=== PATIENT | female | born 1950 | race Caucasian/White ===

== ENCOUNTER → 2021-05-18 11:58 | Outpatient (BNVA) | payer MEDICARE, SELFPAY | PROVIDERS: Family Provider Family Medicine; PCP Family Medicine; Visit Provider Orthopaedic Surgery | DX: M54.5 Low back pain (principal); G89.29 Other chronic pain; Z98.1 Arthrodesis status | CPT/HCPCS: 72110 ==

== ENCOUNTER 2021-05-30 09:31 | Outpatient (CLI) | payer MEDICARE, SELFPAY ==
--- NOTE | 2021-05-30 09:30 | MR_ITS ---
WS: [id number] MRI LUMBAR SPINE NONCONTRAST HISTORY: M54.5 - Low back pain COMPARISON: 10/08/[address] 12/03/2017. TECHNIQUE: Sagittal and axial multisequence imaging is submitted. Prior anterior cervical fusion from C4 to C6. Moderate degenerative disc disease and spondylitic li ges in the cervical and thoracic spine curvature. Mild bilateral foraminal narrowing at T10-11 throug h T12-L1 without severe stenosis. LEFT curvature lumbar spine with hardware fusion at L4-5. Disc spaces are narrowed and desiccated throughout the lumbar spine, most significant at L3-4 and L4- 5. L4 anterolisthesis by 8 mm and L3 retrolisthesis by 5 mm. Very similar in appearance to the prior examinations. No acute marrow edema or fracture. Conus terminates normally at L1-2 disc level. L1-L2: Mild annular disc bulging and ligamentum flavum hypertrophy. No stenosis or progression. L2-L3: Diffuse annular disc bulging with mild ligamentum flavum hypertrophy and facet arthritis. Mild bilateral foraminal stenosis. L3-L4: Moderate central stenosis due to retrolisthesis, disc bulging and marked ligamentum flavum and facet arthritis. Significant progression of stenosis since the prior MRI. Moderate central and bilat eral subarticular recess and foraminal stenosis. L4-L5: Thecal sac is widely patent due to bilateral large laminectomy defects posteriorly. Mild bilat eral foraminal stenosis similar to the prior study. Mild narrowing of the subarticular recesses. No o bvious change. L5-S1: Mild disc bulging. Slight clumping of the nerve roots in the peripheral thecal sac. Mild bilat eral foraminal stenosis with moderate encroachment upon the L5 nerve roots bilaterally and mild on th e S1 nerve roots. No significant progression. MR/MR lumbar spine wo con* [id number] IMPRESSION: 1. Status post L4-5 posterior lumbar fusion with large laminectomy defects. No acute fracture. 2. Significant progression of central stenosis at L3-4 since the prior examina tions. There is moderate central and bilateral subarticular recess and foramina l stenosis at L3-4 due to multiple factors as described above. 3. Mild bilateral foraminal stenosis at L5-S1 without progression. 4. Mild bilateral foraminal stenosis at L2-3 and L4-5 without progression. 5. L4 anterolisthesis by 8 mm is stable.
== END 2021-05-30 09:32 | disposition home or self-care (01) ==
LOC: RADSHAW 09:33
PROVIDERS: PCP Family Medicine; Visit Provider Orthopaedic Surgery
DX: M54.5 Low back pain (principal); M48.061 Spinal stenosis, lumbar region without neurogenic claudication; M48.07 Spinal stenosis, lumbosacral region; M96.1 Postlaminectomy syndrome, not elsewhere classified
CPT/HCPCS: 72148

== ENCOUNTER 2021-06-09 12:42 | Outpatient (CLI) | payer MEDICARE, SELFPAY ==
--- NOTE | 2021-06-09 13:00 | XR_ITS ---
WS: [id number] Left shoulder, 2 views, 06/09/2021 Clinical Data: continued left shoulder pain Comparison: None. Findings: No fractures or dislocations are seen. The AC joint is normal. The adjacent left clavicle, left scapu la and ribs are normal. The soft tissues are unremarkable. There is cystic change of the lesser tuberosity of the left humeral head and also of the inferior gle noid rim. XR/XR shoulder LT min 2V* [id number] Impression: Osteoarthritis of the left shoulder.
== END 2021-06-09 12:43 | disposition home or self-care (01) ==
PROVIDERS: PCP Family Medicine; Visit Provider Family Medicine
DX: M19.012 Primary osteoarthritis, left shoulder (principal)
CPT/HCPCS: 73030

== ENCOUNTER 2021-06-14 10:31 | Outpatient (RCR) | payer MEDICARE, SELFPAY | END 2021-06-27 23:59 | disposition home or self-care (01) | LOC: SPT 10:31 | PROVIDERS: PCP Family Medicine; Referring Provider Family Medicine; Visit Provider Family Medicine | DX: M75.52 Bursitis of left shoulder (principal) | CPT/HCPCS: 97110; 97161 ==

== ENCOUNTER → 2021-06-29 10:37 | Outpatient (BNVA) | payer MEDICARE, SELFPAY | PROVIDERS: PCP Family Medicine; Visit Provider Anesthesiology Pain Medicine | DX: G89.29 Other chronic pain (principal); M48.062 Spinal stenosis, lumbar region with neurogenic claudication; M47.816 Spondylosis without myelopathy or radiculopathy, lumbar region; M51.36 Other intervertebral disc degeneration, lumbar region; M43.16 Spondylolisthesis, lumbar region; M25.512 Pain in left shoulder; Z79.891 Long term (current) use of opiate analgesic | CPT/HCPCS: 99205 ==

== ENCOUNTER → 2021-07-04 13:58 | Outpatient (BNVA) | payer MEDICARE, SELFPAY | PROVIDERS: PCP Family Medicine; Visit Provider Anesthesiology Pain Medicine | DX: M54.16 Radiculopathy, lumbar region (principal); M48.062 Spinal stenosis, lumbar region with neurogenic claudication; Z79.891 Long term (current) use of opiate analgesic | CPT/HCPCS: 64483; 64484; J1100; J3490 ==

== ENCOUNTER 2021-07-10 15:40 | Outpatient (CLI) | payer MEDICARE, SELFPAY ==
--- NOTE | 2021-07-10 16:00 | MR_ITS ---
WS: [id number] MRI LEFT SHOULDER HISTORY: M75.52 - Bursitis of left shoulder COMPARISON: Radiographs 06/09/2021 TECHNIQUE: Multiplanar sequences of the shoulder joint are submitted. Moderate AC joint osteoarthritic changes. Hypertrophic osteophytes along the joint line of the AC norberto nt along with edema and thickening of the joint capsule. There is mild encroachment upon the supraspi natus tendon and muscle. There are small amount of fluid in the subdeltoid bursa. No os acromion. Bic eps tendon is in the bicipital groove. There is variable signal within the biceps tendon suggesting c hronic tendinopathy with increase fluid along the tendon sheath. Severe narrowing of the glenohumeral joint. Vertical orientation of the glenoid. There is bone upon b one with osteophytic ridging around the humeral head. Loss of cartilage and high riding humeral head. There is increase fluid in the axillary pouch and surrounding the humeral head. Fluid surrounding th e humeral head is of mixed signal intensity. Tiny loose bodies and possible cartilage deposition with in the fluid. There is a mixed fluid collection in the subscapularis recess. Significant tendinopathy and fraying along the surface of the distal supraspinatus tendon and also th e infraspinatus tendon. There are no full-thickness tears. There is a small osteophyte or calcific de nsity or loose body adjacent to the distal subscapularis tendon causing mild deformity. This may be a loose body from the loss of cartilage and subchondral cystic changes surrounding the humeral head. S ubscapularis tendon also appears intact. Full atrophy. MR/MR shoulder LT wo con* [id number] IMPRESSION: 1. Severe osteoarthritis at the glenohumeral joint and moderate at the AC join t. 2. Mixed fluid like signal surrounding the humeral head with marked distention of the subscapularis recess. There are tiny loose bodies within the joint effu virgil and the joint capsule is thickened. Probably due to synovitis. 3. Fraying and degenerative changes involving the rotator cuff tendons but no full-thickness tear. Majority of the changes within the tendons is related to i rregularity along the surfaces. 4. Mild biceps tendinopathy.
== END 2021-07-10 15:41 | disposition home or self-care (01) ==
LOC: RADSHAW 15:46
PROVIDERS: PCP Family Medicine; Visit Provider Orthopaedic Surgery
DX: M75.52 Bursitis of left shoulder (principal); M19.012 Primary osteoarthritis, left shoulder
CPT/HCPCS: 73221

== ENCOUNTER → 2021-07-18 12:59 | Outpatient (BNVA) | payer MEDICARE, SELFPAY | PROVIDERS: PCP Family Medicine; Visit Provider Anesthesiology Pain Medicine | DX: M54.16 Radiculopathy, lumbar region (principal); M48.062 Spinal stenosis, lumbar region with neurogenic claudication; Z79.891 Long term (current) use of opiate analgesic | CPT/HCPCS: 64483; 64484; J1100; J3490 ==

== ENCOUNTER → 2021-08-01 10:25 | Outpatient (BNVA) | payer MEDICARE, SELFPAY | PROVIDERS: PCP Family Medicine; Visit Provider Anesthesiology Pain Medicine | DX: M48.062 Spinal stenosis, lumbar region with neurogenic claudication (principal); M47.816 Spondylosis without myelopathy or radiculopathy, lumbar region; M51.36 Other intervertebral disc degeneration, lumbar region; M43.16 Spondylolisthesis, lumbar region; M79.604 Pain in right leg; M79.605 Pain in left leg; Z79.891 Long term (current) use of opiate analgesic | CPT/HCPCS: 99214 ==

== ENCOUNTER → 2021-10-09 11:32 | Outpatient (BNVA) | payer MEDICARE, SELFPAY | PROVIDERS: PCP Family Medicine; Visit Provider Registered Nurse Neonatal Intensive Care | DX: S69.91XA Unspecified injury of right wrist, hand and finger(s), initial encounter (principal); W19.XXXA Unspecified fall, initial encounter; S52.551A Other extraarticular fracture of lower end of right radius, initial encounter for closed fracture | CPT/HCPCS: 73110 ==

== ENCOUNTER → 2021-10-16 12:08 | Day surgery (SDC) | payer MEDICARE, SELFPAY | PROVIDERS: PCP Family Medicine; Visit Provider Orthopaedic Surgery | DX: Z01.818 Encounter for other preprocedural examination (principal); S69.90XA Unspecified injury of unspecified wrist, hand and finger(s), initial encounter; X58.XXXA Exposure to other specified factors, initial encounter | CPT/HCPCS: 93005 ==

== ENCOUNTER 2021-10-17 09:37 | Outpatient (CLI) | payer MEDICARE, SELFPAY ==
--- NOTE | 2021-10-17 | CTR_ITS ---
PROCEDURE INFORMATION: Exam: CT Left Upper Extremity Without Contrast, Shoulder Exam date and time: 10/17/2021 10:03 AM Age: 71 years old Clinical indication: Pain; Shoulder; Left; Additional info: M19.012 - primary osteoarthritis, left shoulder TECHNIQUE: Imaging protocol: CT of the Left upper extremity without contrast was performed. Exam focused on the shoulder. Axial, coronal and sagittal reformatted images were created and reviewed. Radiation optimization: All CT scans at this facility use at least one of these dose optimization techniques: automated exposure control; mA and/or kV adjustment per patient size (includes targeted exams where dose is matched to clinical indication); or iterative reconstruction. COMPARISON: MR shoulder LT wo con* [id number] 07/10/2021 4:11 PM RADIATION DOSE METRICS: Total DLP (mGy-cm): 1579.1 FINDINGS: Bones/joints: Osteopenia. No CT evidence of acute fracture or dislocation. Severe glenohumeral osteoarthrosis, characterized by joint space narrowing, osteophytosis, subchondral sclerosis and subcortical cystic change. Mild acromioclavicular osteoarthrosis. Age-indeterminate erosions along the superior humeral head, likely chronic. Large, complex effusion. Soft tissues: Mild soft tissue swelling. CT/CT shoulder LT wo con* [id number] IMPRESSION: 1. Severe glenohumeral osteoarthrosis and large, complex effusion. 2. Age-indeterminate erosions along the superior humeral head, likely chronic. Please note if there is clinical concern for infectious or inflammatory arthropathy, joint aspiration may be useful. 3. Additional findings, as above.
== END 2021-10-17 09:38 | disposition home or self-care (01) ==
LOC: RAD 09:39
PROVIDERS: PCP Family Medicine; Visit Provider Orthopaedic Surgery
DX: M19.012 Primary osteoarthritis, left shoulder (principal); M25.412 Effusion, left shoulder; Z20.822 Contact with and (suspected) exposure to COVID-19
CPT/HCPCS: 73200; 87635

== ENCOUNTER 2021-10-23 16:30 | Observation (INO) | payer MEDICARE, SELFPAY ==
--- NOTE | 2021-10-16 12:08 | ECG_ITS ---
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
[2021-10-16 12:15] VITALS: BMI 25.7
--- NOTE | 2021-10-16 12:59 | ANES.PREANE2 ---
Pre-Anesthetic Assessment Pre-Anesthetic Assessment: Height/Weight: Height 1.63 m Weight 68.039 kg Preop Diagnosis: Osteoarthritis Left shoulder Proposed Procedure: Operation Date: 10/23/21 11:35 Proposed Procedures p Total Shoulder Arthroplasty 15509 M19.012(Left) - Edy Mendes MD Familial anesthetic complications: None Social: Social History: No alcohol and No tobacco Exam: Pre-Anes Outpt Exam: alert, oriented x 3, clear to auscultation bilaterally and regular rate & rhythm Airway: MP: 2 Dentition: False Pulmonary: Pulmonary: Sleep apnea CV/HEM: CV/HEM: HTN Anesthetic Plan: ASA status: 2 Anesthesia: General and Regional (specify below) (interscalene) Risk of > 500 ml blood loss (7ml/kg in children): No PFSH Anesthesia PFSH: Medical History Abnormal weight gain Cervical stenosis of spine Chronic back pain Depression Hypertension Hypothalamic hypothyroidism Surgical History History of back surgery Social History Smoking and tobacco status: never smoked Alcohol intake: never Data Anesthesia Cardiac Studies: No Data to Display
[2021-10-23] VITALS (13 sets, daily range): BP systolic 142–175; BP diastolic 70–95; PULSE 69–106; RESP 14–18; TEMP 36.3–36.8; O2SAT 93–100
[2021-10-23] MEDS: oxyCODONE 20 mg ER (12 HR) Tablet PO (10:21)
[2021-10-23] MEDS: gabapentin 300 mg Capsule PO ×2 (10:21→21:06)
[2021-10-23] MEDS: sodium chloride 0.9% 1,000 ML 30 ML IV (10:21)
[2021-10-23] MEDS: acetaminophen 500 mg Tablet 1000 MG PO ×2 (10:21→17:58)
[2021-10-23] MEDS: CELEcoxib 200 mg Capsule 400 MG PO (10:22)
[2021-10-23] MEDS: HYDROmorphone 1 mg/mL INJ 1 mL 0.5 MG IVP (10:45)
--- NOTE | 2021-10-23 11:02 | P.ANESUD_ITS ---
Pre-Anesthetic Update Pre-Anesthetic Assessment: Date of Surgery/Procedure: 10/23/21 Preop Ginna gnosis: Osteoarthritis Left shoulder Proposed Procedure: Operation Date: 10/23/21 11:35 Proposed Procedures p Total Shoulder Arthroplasty 09753 M19.012(Left) - Edy Mendes MD Any changes to Pre-Anesthetic Assessment?: No Last Intake: Intake Last Liquid Date 10/22/21 Last Liquid Time 19:00 Last Solid Date 10/22/21 Last Solid Time 19:00 Vitals: Temperature 97.9 F 10/23/21 10:00 Temperature Source Temporal Artery S can 10/23/21 10:00 Pulse Rate 69 10/23/21 10:00 Pulse Rhythm 10/23/21 10:15 Pulse Strength 3+ Normal 10/23/21 10:15 Respiratory Rate 18 10/23/21 10:45 Respiratory Effort Non-Labored 10/23/21 10:45 Respiratory Depth Normal 10/23/21 10:45 Respiratory Patter n 10/23/21 10:45 Blood Pressure 175/82 10/23/21 10:00 Blood Pressure Maddy n 113 10/23/21 10:00 Pulse Oximetry 100 10/23/21 10:45 Oxygen Delivery Me thod 10/23/21 10:15 Exam: Pre-Anes Outpt Exam: alert, oriented x 3, clear to auscultation bilaterally and regular rate & rhythm Other Pertinent Information: Other Pertinent Information: GA with interscalen blk Cardiac Studies: No Data to Display
--- NOTE | 2021-10-23 11:02 | ANES.PROC ---
Anesthesia Procedures Procedure/Date: 10/23/21 Nerve Block ^: Nerve Block 1: Main Anesthesia: general anesthesia Time Out Performed: Yes Consent: requested by attending/covering physician, from patient, risks and benefits reviewed and patient agrees to proceed Nerve block location: interscalene (left) Anesthesia monitors applied: pulse oximetry, EKG, BP cuff and oxygen Nerve block position: semi sitting Anesthetic Used: ropivicaine 0.5% Amount of anesthesia used (mL): 30 Ultrasound used to: recognize landmarks and visualize and ID brachial plexus Nerve Stimulator Used?: No Interscalene/Femoral BLK: 2 stimuplex 22 g needle used for position and inplane approach and visualize local anesthetic spread Injection: neg aspiration of heme Patient Tolerated Procedure: well Complications: none
--- NOTE | 2021-10-23 12:22 | P.HP_ITS ---
Same Day Surgery H&P Indication for Procedure/HPI DATE OF PROCEDURE: October 23, 2021 CHIEF COMPLAINT/INDICATIONFOR SURGICAL PROCEDURE: Osteoarthritis left shoulder here for total shoulder arthroplasty PREOP DIAGNOSIS: Osteoarthritis Left shoulder PLANNED PROCEDRUE: Operation Date: 10/23/21 11:35 Proposed Procedures p Total Shoulder Arthroplasty 47864 M19.012(Left) - Edy Mendes MD 71-year-old female with aggressive history of a left shoulder pain particularly over the last year. She has failed medical management including hydrocodone and multiple injections. She is here for elective left total shoulder arthroplasty Medications/Allergies* Home Medications Medication Instructions Recorded Confirmed Type milk thistle 150 mg capsule 150 mg PO DAILY cap 12/09/19 10/23/21 History multivitamin 1 tab PO DAILY 12/09/19 10/23/21 History hydrocodone 7.5 mg-ibuprofen 200 1 tab PO Q6H PRN 06/29/21 10/23/21 History mg tablet Allergies/Adverse Reactions Allergy/AdvReac Type Severity Reaction Status Date / Time No Known Allergies Allergy Verified 10/16/21 12:11 Current Medications: Generic Name Dose Route Start Last Admin Trade Name Freq PRN Reason Stop Dose Admin Sodium Chloride 1,000 mls @ 30 mls/hr 10/23/21 10:00 10/23/21 10:21 Sodium Chloride 0.9% IV 10/24/21 09:59 30 mls/hr .Q24H MONET Administration Pertinent History/Comorbid Conditions* Medical History (Updated 10/11/21 @ 11:15 by Edy Mendes MD) Abnormal weight gain Cervical stenosis of spine Chronic back pain Depression Hypertension Hypothalamic hypothyroidism Surgical History (Updated 12/09/19 @ 12:46 by Zaida Siddiqui MD) History of back surgery Social History Smoking and tobacco status: never smoked Alcohol intake: never Pertinent Exam Findings alert, oriented x 3, clear to auscultation bilaterally, regular rate & rhythm and operative site marked Recommendations Surgery/Procedure today Coding Level of Care Code Acute Surgical Clinical Reviewer for Pari Ann
[2021-10-23] MEDS: EPINEPHrine 1 mg/mL INJ XX (13:38)
--- NOTE | 2021-10-23 15:12 | PM.OP ---
Operative Report Date of procedure: October 23, 2021 Pre-op Diagnosis: Osteoarthritis Left shoulder Post-op diagnosis: same Post-op Findings: Same Procedure Done: Left total shoulder arthroplasty Implants: Tornier Cortiloc glenoid size 35, nucleus size 3, Simplicity head 45 x 17 [place] 4-hole hand plate Pathology: none sent Surgeon: Edy Mendes Anesthesia: General and Nerve Block (Interscalene block) Estimated blood loss (mL): 200 Complications: None Findings: The patient had severe degenerative central erosive change of the humeral head and peripheral osteophytes and peripheral glenoid osteophytes Condition: stable Disposition: PACU Procedure: An intrascalene blocks provided the holding area. The patient was taken to the operating room and given a general anesthesia. They were given 2 g of Ancef. Positioned in beachchair position with the arm in arm pagan. A timeout was performed. A 8 cm long incision was made over the deltopectoral groove and dissection carried out with a scalpel blade to the deltopectoral interval. The cephalic vein was identified and retracted laterally. Digital dissection was accomplished to free lesions beneath the deltoid and beneath the coracobrachialis musculature. A small/medium Juan F sleeve was placed beneath the deltoid and pectoralis major tendon. The biceps tendon was identified and dissection traced proximally to the bicipital groove. Utilizing cautery the subscapularis and anterior capsule was released anteriorly in full-thickness and freed distally at the level of the anterior humeral circumflex vessels. The glenohumeral joint include was externally rotated and dislocated. In accordance with our preoperative plan a neck cut in 30 degrees of retroversion. Capsule was released from the inferior and posterior glenoid. A canal finder was used to find the canal and sequential broaching was accomplished until rotational stability was encountered with a stem of size 3, a calcar protector plate was applied. The humeral head was then retracted posteriorly and inferiorly. Utilizing electrocautery labral and biceps remnants were excised circumferentially. The centering guide was used to place the central guidepin and the glenoid ream down to sclerotic bone. The 35 mm glenoid provided satisfactory coverage. the baseplate was prepared with the central and 3 peripheral holes. The drill holes were soaked in epinephrine solution. Peripheral peg holes were filled with cement and the final 35 mmCortiloc glenoid glenoid component was placed. A trial reduction was performed with the 45 mm diameter, 17 mm thickness head and the final components were press-fit into place. The shoulder was reduced and found to be stable. The subscap was secured with a 2 locking Ultratape sutures exiting in the dorsal aspect of the tendon. The lesser tuberosity was debrided down to trabecular bone. The shoulder was irrigated with saline and gentamicin solution. 3 drill holes were made in the bicipital tuberosityfrom proximal to distal. The most superior suture was passed through the top hole, middle sutures through the second hole, and the inferior suture through the inferior hole. The sutures were then passed through a small 4-hole [place] plate and secured with the elbow in 30 degrees of external rotation, rowing the rotator cuff over the lesser tuberosity. The lateral rotator interval was closed with ultra tape suture. The deltopectoral interval was closed with 0 Vicryl. The subcutaneous tissues were closed with 2-0 Vicryl. The skin was closed with skin too. Sterile dressings were applied. The patient was placed in a sling extubated and taken to recovery room in stable condition.
--- NOTE | 2021-10-23 15:26 | XR_ITS ---
WS: [id number] Left shoulder, AP view, 10/23/2021 Clinical Data: Left total shoulder Comparison: Left shoulder, 06/09/2021 Findings: There is a left shoulder prosthesis are in place in the left humeral head. The glenoid rim does show cystic change. XR/XR shoulder LT min 2V* [id number] Impression: Total left shoulder prosthesis.
--- NOTE | 2021-10-23 16:01 | SUR.PHASEI ---
15:30 RECEIVED PATIENT FROM OR STAFF. PATIENT DROWSY BUT RESPONDS TO VERBAL. AIRWAY PATENT. SINUS TACH ON MONITOR. PATIENT DENIES PAIN OR NAUSEA. 16:00 REPORT GIVEN TO SECOND FLOOR NURSE. .PATIENT ALERT AND ORIENTED. TOLERATING ICE CHIPS.DENIES DYSPNEA OR PAIN. X RAY DONE.
--- NOTE | 2021-10-23 17:05 | ANE.PACU2 ---
Inpatient post-anesthesia follow up: Airway intact: Yes Vital signs: Temperature 97.7 F Pulse Rate 91 Respiratory Rate 18 Blood Pressure 154/92 Pulse Oximetry 97 Oxygen Delivery Me thod Nasal Cannula Oxygen Flow Rate 3 Fraction of Inspir ed Oxygen Hydration adequate: Yes Nausea and vomiting: No Pain level: 1 Mental status: Baseline
[2021-10-23] MEDS: cloNIDine 0.1 mg Tablet PO (21:05)
[2021-10-23] MEDS: cyclobenzaprine 10 mg Tablet 5 MG PO (21:06)
[2021-10-23] MEDS: CELEcoxib 200 mg Capsule PO (21:10)
[2021-10-24] VITALS (7 sets, daily range): BP systolic 113–164; BP diastolic 61–84; PULSE 66–74; RESP 16–18; TEMP 36.7–36.8; O2SAT 91–94
[2021-10-24] MEDS: acetaminophen 500 mg Tablet 1000 MG PO ×2 (03:03→10:17)
[2021-10-24 05:33] LABS: Hemoglobin 10.3 g/dL (11.5-15.3)
[2021-10-24] MEDS: levothyroxine 50 mcg Tablet PO (08:02)
[2021-10-24] MEDS: gabapentin 300 mg Capsule PO (08:02)
[2021-10-24] MEDS: venlafaxine ER (24HR) 150 mg Capsule PO (08:02)
[2021-10-24] MEDS: cloNIDine 0.1 mg Tablet PO (08:02)
[2021-10-24] MEDS: aspirin 325 mg EC Tablet PO (08:03)
[2021-10-24] MEDS: oxyCODONE 5 mg IR Tab/Cap 10 MG PO ×2 (08:03→12:25)
[2021-10-24] MEDS: CELEcoxib 200 mg Capsule PO (10:17)
--- NOTE | 2021-10-24 11:59 | P.DS_ITS ---
Discharge Providers Date of Admission: 10/23/21 16:30 Date of Discharge: October 24, 2021 Attending Provider at Admission: Edy Mendes MD Attending Provider at Discharge: Edy Mendes MD Primary Care Provider: Zaida Siddiqui MD Reason for Visit Reason for Visit: Primary osteoarthritis left shoulder Hospital Course Hospital Course The patient tolerated surgery well. They remained hemodynamically stable. They was begun on aspirin and sequential compression dressings for DVT prophylaxis. The patient was mobilized and begin occupational therapy beginning the day of surgery. As the pain was adequately controlled and they were fully mobile they were discharged home. Physical Exam Narrative: EXAM NARRATIVE: The patient's left shoulder incision was clean and dry on the day of discharge. She would fire her deltoid and biceps. No distal neurovascular deficits were noted Discharge Data Data Completed and Pending: Completed Studies During Hospitalization Category Date Time Status XR shoulder LT mi n 2V* [id number] Routin e Exams 10/23/21 15:26 Completed Labs from last 24 hours 10/24/21 04:55 Hgb 10.3 L Vitals: Last Vital Signs Temp 98.3 F 10/24/21 11:37 Pulse 74 10/24/21 11:37 Resp 16 10/24/21 11:37 BP 113/61 10/24/21 11:37 Pulse Ox 91 10/24/21 11:37 Discharge Plan Discharge Patient Disposition: Home Condition: Stable Prescriptions: New celecoxib 200 mg Capsule 200 mg PO Q12H 14 Days Qty: 28 RF: 0 Continued hydrocodone-ibuprofen 7.5-200 mg tablet 1 tab PO Q6H PRN (Reason: Pain) RF: 0 cyclobenzaprine 5 mg tablet 5 mg PO TID PRN (Reason: muscle spasm) Qty: 60 RF: 3 multivitamin Tablet 1 tab PO DAILY RF: 0 milk thistle 150 mg capsule 150 mg PO DAILY RF: 0 levothyroxine [Synthroid] 50 mcg tablet 50 mcg PO DAILY Qty: 90 RF: 3 venlafaxine 150 mg capsule,extended release 24hr 150 mg PO DAILY 90 Days Qty: 90 RF: 3 clonidine HCl 0.1 mg tablet 0.1 mg PO BID 90 Days Qty: 180 RF: 3 gabapentin 300 mg capsule 300 mg PO TID Qty: 270 RF: 1 Discharge Orders: Discharge Order (Routine); Ordered 10/24/21 Ordered By: Edy Mendes Other Ambulatory Orders: Physical Therapy Eval and Treat Outpatient (Order) Timeframe: 2 Weeks Facility: [facility] - Location: Physical Therapy Ordered By: Edy Mendes Referrals: Edy Mendes MD [Physician] - 10/26/21 9:00 am Discharge Diet: Advance as tolerated Discharge Activity: Limit activity as instructed Patient Instructions: Oxycodone/Acetaminophen (By mouth), Celecoxib (By mouth), Shoulder Arthroplasty (GEN), Opioid Safety Activity Restrictions/Additional Instructions: Okay to shower Apply Ice up to 20 min/hr for pain and swelling Take Celebrex twice a day for the next 15 days for pain , discontinue other anti-inflammatories Pain management will be performed under the supervision of [facility] pain management in [place]. Prescriptions have been supplied by them. Exercises per occupational therapy. Pendulum exercises left shoulder, active range of motion left elbow wrist and hand Leave arm in immobilizer except when doing exercises Discharge Attestations Time Spent in Discharge Care*: other Quality Metrics Clinical Quality Measures During this hospital stay, did patient experience: None Coding Level of Care Code Acute [facility] SANTIAGO note
== END 2021-10-24 13:57 | disposition home or self-care (01) ==
LOC: MEDSURG 10-24 11:59
PROVIDERS: Admitting Provider Orthopaedic Surgery; PCP Family Medicine; Visit Provider Orthopaedic Surgery
PROC: (CPT 23472; principal; 2021-10-23 11:35)
DX: M19.012 Primary osteoarthritis, left shoulder (principal); F32.9 Major depressive disorder, single episode, unspecified; I10 Essential (primary) hypertension; G47.30 Sleep apnea, unspecified
CPT/HCPCS: 23472; 36415; 64415; 73030; 76942; 85018; 97165; C1713; C1776; G0378; J0171; J0690; J1100; J1170; J1200; J1580; J2405; J2795; J3010; J3490; J7030

== ENCOUNTER 2021-11-15 06:00 | Outpatient (RCR) | payer MEDICARE, SELFPAY | END 2021-11-27 23:59 | disposition home or self-care (01) | LOC: SPT 06:00 | PROVIDERS: PCP Family Medicine; Referring Provider Orthopaedic Surgery; Visit Provider Orthopaedic Surgery | DX: M19.012 Primary osteoarthritis, left shoulder (principal) | CPT/HCPCS: 97110; 97161 ==

== ENCOUNTER 2021-11-28 06:00 | Outpatient (RCR) | payer MEDICARE, SELFPAY | END 2021-12-25 23:59 | disposition home or self-care (01) | LOC: SPT 06:00 | PROVIDERS: PCP Family Medicine; Referring Provider Orthopaedic Surgery; Visit Provider Orthopaedic Surgery | DX: M19.012 Primary osteoarthritis, left shoulder (principal) | CPT/HCPCS: 97110 ==

== ENCOUNTER → 2021-12-13 10:12 | Outpatient (BNVA) | payer MEDICARE, SELFPAY | PROVIDERS: PCP Family Medicine; Visit Provider Orthopaedic Surgery | DX: Z96.612 Presence of left artificial shoulder joint (principal) | CPT/HCPCS: 73030 ==

== ENCOUNTER 2022-08-24 11:09 | Outpatient (CLI) | payer MEDICARE, SELFPAY ==
--- NOTE | 2022-08-24 11:19 | MM_ITS ---
WS: [id number] BILATERAL SCREENING DIGITAL TOMOSYNTHESIS MAMMOGRAM WITH CAD HISTORY: Screening exam. COMPARISON: 03/25/2019, 03/13/2019, 06/25/2014 Bilateral CC and MLO views with tomosynthesis and synthetic mammography submitted. Computer aided det ection analyzed. Breast composition: There are scattered areas of fibroglandular density. No suspicious masses, microc alcifications or architectural distortion. Benign calcification anterior LEFT breast. MM/[place] [id number] IMPRESSION: BI-RADS: 2-Benign FOLLOW UP: 1 Year Follow-up
== END 2022-08-24 11:10 | disposition home or self-care (01) ==
PROVIDERS: PCP Family Medicine; Visit Provider Family Medicine
DX: Z12.31 Encounter for screening mammogram for malignant neoplasm of breast (principal)
CPT/HCPCS: 77063; 77067

== ENCOUNTER 2023-01-14 12:13 | Outpatient (CLI) | payer MEDICARE, SELFPAY ==
--- NOTE | 2023-01-14 12:37 | XR_ITS ---
WS: [id number] EXAMINATION: XR knee RT 3V* [id number] REASON FOR EXAM: increasing lateral knee/patellar pain COMPARISON: None available. ORDER DATE: 01/14/2023 12:45 PM FINDINGS: There are marginal osteophytes associated with the tibial spines, patella and other articular margins with lateral and patellofemoral compartment narrowing. There is no sign of any acute fracture or dis location. A small joint effusion cannot be excluded in the popliteal space or this could be a poplite al cyst corresponding with the circumscribed increased density. XR/XR knee RT 3V* [id number] IMPRESSION: LATERAL AND PATELLOFEMORAL COMPARTMENT NARROWING WITH OSTEOARTHRITIC CHANGES. POSSIBLE POPLITEAL CYST OR POPLITEAL FOSSA JOINT EFFUSION
== END 2023-01-14 12:14 | disposition home or self-care (01) ==
LOC: RAD 12:22
PROVIDERS: PCP Family Medicine; Visit Provider Family Medicine
DX: M94.20 Chondromalacia, unspecified site (principal); M17.11 Unilateral primary osteoarthritis, right knee
CPT/HCPCS: 73562

== ENCOUNTER 2023-01-14 20:00 | Outpatient (CLI) | payer MEDICARE, SELFPAY | END 2023-01-14 20:01 | disposition home or self-care (01) | LOC: SLEEP 01-15 05:18 | PROVIDERS: PCP Family Medicine; Visit Provider Family Medicine | DX: G47.33 Obstructive sleep apnea (adult) (pediatric) (principal) | CPT/HCPCS: 95810 ==

== ENCOUNTER 2023-03-19 20:00 | Outpatient (CLI) | payer MEDICARE, SELFPAY | END 2023-03-20 06:05 | disposition home or self-care (01) | LOC: SLEEP 03-26 15:36 | PROVIDERS: PCP Family Medicine; Visit Provider Family Medicine | DX: G47.33 Obstructive sleep apnea (adult) (pediatric) (principal) | CPT/HCPCS: 95811 ==

== ENCOUNTER → 2023-05-13 12:18 | Outpatient (BNVA) | payer MEDICARE, SELFPAY | PROVIDERS: PCP Family Medicine; Visit Provider Family Medicine | DX: I10 Essential (primary) hypertension (principal); E03.9 Hypothyroidism, unspecified; K57.90 Diverticulosis of intestine, part unspecified, without perforation or abscess without bleeding; Z12.11 Encounter for screening for malignant neoplasm of colon; K52.9 Noninfective gastroenteritis and colitis, unspecified | CPT/HCPCS: 80053; 84443; 85025 ==

== ENCOUNTER → 2024-05-26 09:37 | Outpatient (BNVA) | payer MEDICARE, SELFPAY | PROVIDERS: PCP Family Medicine; Visit Provider Family Medicine | DX: I10 Essential (primary) hypertension (principal); E03.9 Hypothyroidism, unspecified | CPT/HCPCS: 80053; 84443; 85025 ==

== ENCOUNTER 2024-06-09 10:30 | Outpatient (CLI) | payer MEDICARE, SELFPAY ==
--- NOTE | 2024-06-09 | FL_ITS ---
NOTE: Report was unsigned for reason: Report did not cross, copied/pasted. Original Signature date and time was: 06/09/24 @ 1134 EXAMINATION: FL barium swallow modifd [id number] ORDER DATE: 06/09/2024 11:10 AM REASON FOR EXAM: Food gets stuck COMPARISON: None available. FLUOROSCOPY TIME: 1min [id number] # OF SPOT FILMS: 1 8 video fluoroscopy runs FINDINGS: The patient has good oral motor control. The swallowing mechanism is intact. There is no penetration or aspiration of any of the ingested consistencies. There was consistent narrowing of the upper esophagus in the region of the cricopharyngeal muscle. The patient barium tablet held up at this level and reproduce the patient's symptoms IMPRESSION: There is good oral motor control. The swallowing mechanism is intact. There is narrowing at the level of the cricopharyngeal muscle. MTDD
== END 2024-06-09 10:31 | disposition home or self-care (01) ==
LOC: RAD 10:30
PROVIDERS: PCP Family Medicine; Visit Provider Family Medicine
DX: K22.0 Achalasia of cardia (principal); K21.9 Gastro-esophageal reflux disease without esophagitis
CPT/HCPCS: 74230; 92611

== ENCOUNTER → 2024-07-14 13:01 | Outpatient (BNVA) | payer MEDICARE, SELFPAY | PROVIDERS: PCP Family Medicine; Referring Provider Family Medicine; Visit Provider Surgery | DX: R13.10 Dysphagia, unspecified | CPT/HCPCS: 99204 ==

== ENCOUNTER 2024-07-21 11:00 | Day surgery (SDC) | payer MEDICARE, SELFPAY ==
[2024-07-21 10:50] VITALS: BP 145/90; PULSE 63; RESP 18; TEMP 36.4; O2SAT 94
[2024-07-21 11:12] VITALS: BP 191/104; PULSE 75; RESP 16; TEMP 36.1; O2SAT 98
[2024-07-21] MEDS: sodium chloride 0.9% 1,000 ML 30 ML IV (11:15)
--- NOTE | 2024-07-21 11:21 | P.ANESASSM_ITS ---
Pre-Anesthetic Assessment Height/Weight: Height 1.63 m Temp Pulse Resp BP Pulse Ox O2 Del Method 97 F L 75 16 191/104 98 Room Air 07/21/24 11:12 07/21/24 11:12 07/21/24 11:12 07/21/24 11:12 07/21/24 11:12 07/21/24 11:12 Operation Date: 07/21/24 12:10 Proposed Procedures p EGD Dilation W/ Balloon 84295, K21.0(Not Applicable) - Jamie Lantigua MD Familial anesthetic complications: None Was Beta Marco taken within 24 hours: N/A Was Clonidine taken within 24 hours: N/A Last intake: Intake Last Liquid Date 07/20/24 Last Liquid Time 22:30 Last Solid Date 07/20/24 Last Solid Time 21:00 Social No alcohol and No tobacco Exam alert, oriented x 3, clear to auscultation bilaterally and regular rate & rhythm Airway Mallampati: Class II Dentition: false Pulmonary Sleep Apnea CV/HEM Hypertension GI Gastroesophageal Reflux Disease Metabolic Thyroid Disease Anesthetic Plan ASA status: 3 Anesthesia: MAC Risk of > 500 ml blood loss (7ml/kg in children): No Medications/Allergies Home Medications Medication Instructions Recorded Confirmed Last Taken Type hydrocodone 7.5 mg-ibuprofen 200 1 tab PO Q6H PRN Pain 06/29/21 07/21/24 07/20/24 History mg tablet CPAP (Auto-Titrating CPAP) #1 ea 04/02/23 07/21/24 07/20/24 Rx levothyroxine 50 mcg tablet 50 mcg PO DAILY #90 tabs 01/21/24 07/21/24 07/20/24 Rx (Synthroid) venlafaxine 150 mg 150 mg PO DAILY 90 days #90 caps 02/11/24 07/21/24 07/20/24 Rx capsule,extended release 24 hr omeprazole 20 mg capsule,delayed 20 mg PO DAILY #30 caps 05/25/24 07/21/24 07/20/24 Rx release clonidine HCl 0.2 mg tablet 0.2 mg PO BID 07/16/24 07/21/24 07/20/24 History gabapentin 300 mg capsule 300 mg PO TID 07/16/24 07/21/24 07/20/24 History Allergies Allergy/AdvReac Type Severity Reaction Status Date / Time No Known Allergies Allergy Verified 07/17/24 09:05 [facility] Anesthesia Medical History (Updated 07/14/24 @ 16:14 by Jamie Lnatigua MD) GERD (gastroesophageal reflux disease) Hypothyroid Chondromalacia Obstructive sleep apnea Abnormal weight gain Chronic back pain Depression Hypothalamic hypothyroidism Cervical stenosis of spine Hypertension Surgical History (Updated 07/14/24 @ 13:22 by Brandie Kate) History of back surgery Social History (Updated 07/14/24 @ 13:22 by Brandie Kate) Smoking and tobacco/nicotine status: never used tobacco/nicotine Alcohol intake: current Alcohol intake frequency: holidays/special occasions only Substance/Drug Use: never Data Anesthesia Cardiac Studies: No Data to Display
--- NOTE | 2024-07-21 11:22 | P.HPUD_ITS ---
Surgery/Procedure H&P Update DATE OF PROCEDURE: July 21, 2024 DATE H&P PERFORMED: 07/14/24 H&P UPDATE INFORMATION: I have reviewed H&P completed within last 30 days, I have examined patient prior to procedure, No changes to prior documentation and H&P is in [facility] on date indicated PLANNED PROCEDURE: Operation Date: 07/21/24 12:10 Proposed Procedures p EGD Dilation W/ Balloon [id number], K21.0(Not Applicable) - Jamie Lantigua MD
[2024-07-21 11:50] VITALS: BP 145/70; PULSE 63; RESP 18; TEMP 36.4; O2SAT 98
[2024-07-21 12:00] VITALS: BP 143/80; PULSE 66; RESP 18; O2SAT 94
[2024-07-21 12:25] VITALS: BP 164/103; PULSE 68; RESP 18; O2SAT 93
--- NOTE | 2024-07-21 12:30 | ANE.PACU2 ---
Inpatient post-anesthesia follow up: Airway intact: Yes Vital signs: Temperature 97.6 F Pulse Rate 68 Respiratory Rate 18 Blood Pressure 164/103 Pulse Oximetry 93 Oxygen Delivery Me thod Room Air Oxygen Flow Rate Fraction of Inspir ed Oxygen Hydration adequate: Yes Nausea and vomiting: No Pain level: 1 Mental status: Baseline
== END 2024-07-21 12:30 | disposition home or self-care (01) ==
PROVIDERS: PCP Family Medicine; Visit Provider Surgery
DX: K21.00 Gastro-esophageal reflux disease with esophagitis, without bleeding (principal); G47.30 Sleep apnea, unspecified; I10 Essential (primary) hypertension; E03.9 Hypothyroidism, unspecified
CPT/HCPCS: 43239; 88305; J2704; J3490; J7030

== ENCOUNTER → 2024-08-05 11:04 | Outpatient (BNVA) | payer MEDICARE, SELFPAY | PROVIDERS: PCP Family Medicine; Visit Provider Surgery | DX: Z09 Encounter for follow-up examination after completed treatment for conditions other than malignant neoplasm (principal) | CPT/HCPCS: 99213 ==

== ENCOUNTER 2025-04-10 18:33 | Emergency (ER) | payer MEDICARE, SELFPAY ==
[2025-04-10 18:45] VITALS: BP 147/79; PULSE 57; RESP 16; TEMP 36.6; O2SAT 98; BMI 26.6
--- NOTE | 2025-04-10 19:06 | ECG_ITS ---
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 Measurements Intervals [place] Rate: 58 P: 43 [place]: 202 QRS: 62 QRSD: 90 T: 48 QT: 436 QTc: 430 Interpretive Statements SINUS BRADYCARDIA WITH FREQUENT VENTRICULAR PREMATURE COMPLEXES ABNORMAL RHYTHM ECG Compared to ECG 10/16/2021 12:37:08 Ventricular premature complex(es) now present Electronically Signed On 04-11-2025 21:38:01 CDT by Alyce Medeiros M.D. [email or web address] [id number]
[2025-04-10 19:22] LABS: Basophils # 0.1 10^3/uL (0.0-0.1); Basophils % 0.7 %; Eosinophils # 0.3 10^3/uL (0.0-0.8); Eosinophils % 2.5 %; Hematocrit 40.8 % (36-47); Lymphocytes # 7.6 10^3/uL (0.8-4.8); Lymphocytes % 62.5 %; Mean Corpuscular HGB Conc 31.6 g/dL (30-55); Mean Corpuscular Hemoglobin 31.9 pg (27-33); Monocytes # 0.6 10^3/uL (0.2-0.9); Monocytes % 5.2 %; Neutrophils # 3.55 10^3/uL (1.8-7.7); Nucleated Red Blood Cells % 0 %; Platelet Count 235 10^3/cmm (157-399); Red Blood Count 4.04 10^6/uL (3.85-5.65); Red Cell Distribution Width 13.9 % (12.1-15.1)
[2025-04-10 19:38] LABS: Lactic Sepsis W/Reflex 1.1 mmol/L (0.5-2.2)
[2025-04-10 19:40] LABS: Troponin(5th) Baseline 7 ng/L (0-10)
[2025-04-10 19:44] LABS: Bilirubin Urine Negative (Negative); Blood Urine Negative (Negative); Glucose Urine UA Negative (Normal); Ketones Urine Negative (Negative); Leukocyte Esterase Urine Negative (Negative); Nitrate Urine Negative (Negative); Protein Urine Negative (Negative); Specific Gravity, Urine 1.028 (1.005-1.030); Urine Appearance Clear (CLEAR); Urine Color Yellow (Yellow); Urobilinogen Urine 0.2 mg/dL (Negative)
[2025-04-10 19:46] LABS: Alanine Aminotransferase 25 U/L (0-33); Albumin Level 4.6 g/dL (3.5-5.2); Alkaline Phosphatase 58 U/L (35-105); Anion Gap 19.5 (5-19); Aspartate Amino Transferase 22 U/L (0-32); Blood Urea Nitrogen 26 mg/dL (8-23); Calcium 9.8 mg/dL (8.5-10.5); Carbon Dioxide 24 mmol/L (22-29); Chloride 100 mmol/L (98-107); Creatinine Clr Calc Pharmacy 59.3557; Globulin 2.4 g/dL (1.3-4.6); Glucose 106 mg/dL (65-115); Lipase 36 U/L (13-60); Magnesium 2.7 mg/dL (1.7-2.3); Osmolality Calculated 293 mOsm/kg (285-295); Potassium 4.5 mmol/L (3.5-5.1); Sodium 139 mmol/L (136-145); Total Bilirubin 0.3 mg/dL (0.15-1.2)
--- NOTE | 2025-04-10 19:47 | W.ED.GENADLT ---
HPI - General Adult General: Chief complaint: General Medical Stated complaint: Low Pulse high BP N/V Time Seen by Provider: 04/10/25 18:59 History of Present Illness: 74-year-old female who is felt unwell for 3 to 4 days or so. She has had a mild headache. She has had nausea. She states that today her blood pressure was high. She had not checked her blood pressure prior. She says her pulse rate was low as well, in the 50s. She took a clonidine at home and her blood pressure is improved. Her headache and nausea are also improved as well. She denies any chest or abdominal pain. No vomiting. No diarrhea. No fever. No shortness of breath. Related Data Home Medications ?Medication ?Instructions ?Recorded ?Confirmed hydrocodone 7.5 mg-ibuprofen 200 1 tab PO Q6H PRN Pain 06/29/21 08/05/24 mg tablet Previous Rx's ?Medication ?Instructions ?Recorded CPAP (Auto-Titrating CPAP) #1 ea 04/02/23 clonidine HCl 0.2 mg tablet See Rx Instructions .Route 07/28/24 .COMPLEX #180 tabs pantoprazole 40 mg tablet,delayed 40 mg PO ONCE 30 days #30 tabs 08/05/24 release gabapentin 300 mg capsule See Rx Instructions .Route 10/20/24 .COMPLEX #270 caps venlafaxine 150 mg 150 mg PO DAILY 90 days #90 caps 11/23/24 capsule,extended release 24 hr levothyroxine 50 mcg tablet See Rx Instructions .Route 03/29/25 .COMPLEX #90 tabs amlodipine 10 mg tablet 10 mg PO DAILY #30 tabs 04/10/25 Allergies Allergy/AdvReac Type Severity Reaction Status Date / Time No Known Allergies Allergy Verified 08/05/24 11:11 [facility] PFS: Medical History GERD (gastroesophageal reflux disease) Hypothyroid Chondromalacia Obstructive sleep apnea Abnormal weight gain Chronic back pain Depression Hypothalamic hypothyroidism Cervical stenosis of spine Hypertension Surgical History History of back surgery Social History Smoking and tobacco/nicotine status: never used tobacco/nicotine Alcohol intake: current Alcohol intake frequency: holidays/special occasions only Substance/Drug Use: never Physical Exam Const: COMMON NORMALS: no acute distress GENERAL APPEARANCE: cooperative; not ill appearing and not frail appearing HENMT: COMMON NORMALS: normocephalic, atraumatic and Normal external nose present HEAD & SCALP: normocephalic and atraumatic FACE & SINUS: normal facial exam and face symmetric NOSE: Normal external nose present Eye: COMMON NORMALS: Equal, round and reactive pupils present and EOMs intact bilaterally PUPIL: Yes Equal, round and reactive pupils present Neck/C-Spine: GENERAL: Yes trachea midline Chest: CHEST: Yes Symmetrical chest wall rise Resp: COMMON NORMALS: normal respiratory effort, No retractions, No use of accessory muscles and clear to auscultation bilaterally AUSCULTATION: clear to auscultation bilaterally Cardio: COMMON NORMALS: regular rate and regular rhythm RATE: regular rate RHYTHM: regular rhythm GI: COMMON NORMALS: Normal to inspection, nondistended, normoactive bowel sounds present Extremity: COMMON NORMALS: no pedal edema Neuro: SOPHIE COMA SCALE: document GCS findings [place] coma scale eye opening: Spontaneous [place] coma scale verbal response: Orientated [place] coma scale motor response: Obey commands [place] coma scale total score: 15 SENSORY EXAM: Yes extremities (intact) Psych: COMMON NORMALS: speech normal SPEECH: Yes normal speech Skin: COMMON NORMALS: no rashes or lesions noted GENERAL SKIN EXAM: no rashes or lesions noted Course Vital Signs: Vital signs: Vital Signs Temperature 97.9 F 04/10/25 18:45 Pulse Rate 62 04/10/25 22:53 Respiratory Rate 16 04/10/25 22:53 Blood Pressure 163/78 04/10/25 22:53 Pulse Oximetry 95 04/10/25 22:53 Oxygen Delivery Me thod Room Air 04/10/25 21:11 [facility] - General Adult Medical Decision Making Benign exam. Her white blood cell count is 12, with no left shift. Her lactic acid is 1.1. Her urinalysis is negative. Her CRP is 3. Her troponin is 7. She does have a sinus bradycardia with frequent PVCs present on EKG. 2-hour troponin is stable. PVCs are much less frequent now. She is asymptomatic now. Blood pressure remained stable. She was given amlodipine. She will take her blood pressure twice daily. If greater than 150 systolic, she will take amlodipine in favor of clonidine. She can still use clonidine to abort significantly high blood pressure. Close outpatient follow-up. She will be allowed discharge. If heart rate continues to be low, she may need Holter monitoring as an outpatient. Lab Data 04/10/25 19:16 04/10/25 19:16 Radiology Impressions Chest X-Ray 04/10/25 21:42 IMPRESSION: No acute findings. Laboratory Results WBC 12.20 10^3/uL (3.29-11.43) H 04/10/25 19:16 RBC 4.04 10^6/uL (3.85-5.65) 04/10/25 19:16 Hgb 12.90 g/dL (11.27-16.99) 04/10/25 19:16 Hct 40.8 % (36-47) 04/10/25 19:16 MCV 101.0 fl (85-98) H 04/10/25 19:16 MCH 31.9 pg (27-33) 04/10/25 19:16 MCHC 31.6 g/dL (30-55) 04/10/25 19:16 RDW 13.9 % (12.1-15.1) 04/10/25 19:16 Plt Count 235 10^3/cmm (157-399) 04/10/25 19:16 MPV 10.0 fL (7.4-10.4) 04/10/25 19:16 Neut % (Auto) 29.0 % 04/10/25 19:16 Lymph % (Auto) 62.5 % 04/10/25 19:16 [place] % (Auto) 5.2 % 04/10/25 19:16 Eos % (Auto) 2.5 % 04/10/25 19:16 Baso % (Auto) 0.7 % 04/10/25 19:16 Neut # (Auto) 3.55 10^3/uL (1.8-7.7) 04/10/25 19:16 Lymph # (Auto) 7.6 10^3/uL (0.8-4.8) H 04/10/25 19:16 [place] # (Auto) 0.6 10^3/uL (0.2-0.9) 04/10/25 19:16 Eos # (Auto) 0.3 10^3/uL (0.0-0.8) 04/10/25 19:16 Baso # (Auto) 0.1 10^3/uL (0.0-0.1) 04/10/25 19:16 Nucleated RBC % (auto) 0 % 04/10/25 19:16 Nucleated RBCs # 0.0 /100WBC 04/10/25 19:16 Sodium 139 mmol/L (136-145) 04/10/25 19:16 Potassium 4.5 mmol/L (3.5-5.1) 04/10/25 19:16 Chloride 100 mmol/L (98-107) 04/10/25 19:16 Carbon Dioxide 24 mmol/L (22-29) 04/10/25 19:16 Anion Gap 19.5 (5-19) H 04/10/25 19:16 BUN 26 mg/dL (8-23) H 04/10/25 19:16 Creatinine 0.6 mg/dL (0.5-0.9) 04/10/25 19:16 GFR Calculation Not Reportable 04/10/25 19:16 Glucose 106 mg/dL (65-115) 04/10/25 19:16 Calculated Osmolality 293 mOsm/kg (285-295) 04/10/25 19:16 Lactic Acid 1.1 mmol/L (0.5-2.2) 04/10/25 19:16 Calcium 9.8 mg/dL (8.5-10.5) 04/10/25 19:16 Magnesium 2.7 mg/dL (1.7-2.3) H 04/10/25 19:16 Total Bilirubin 0.3 mg/dL (0.15-1.2) 04/10/25 19:16 AST 22 U/L (0-32) 04/10/25 19:16 ALT 25 U/L (0-33) 04/10/25 19:16 Alkaline Phosphatase 58 U/L (35-105) 04/10/25 19:16 Troponin T Baseline 7 ng/L (0-10) 04/10/25 19:16 Troponin T 120 Minute 6.89 ng/L (0-10) 04/10/25 21:09 Delta Troponin T -0.11 ABS# (0-10) L 04/10/25 21:09 C-Reactive Protein 3.0 mg/L (0.0-4.9) 04/10/25 19:16 Total Protein 7.0 g/dL (6.6-8.7) 04/10/25 19:16 Albumin 4.6 g/dL (3.5-5.2) 04/10/25 19:16 Globulin 2.4 g/dL (1.3-4.6) 04/10/25 19:16 Lipase 36 U/L (13-60) 04/10/25 19:16 TSH 1.83 uIU/mL (0.27-4.20) 04/10/25 19:16 Urine Color Yellow (Yellow) 04/10/25 19:34 Urine Appearance Clear (CLEAR) 04/10/25 19:34 Urine pH 8.0 (5-7) A 04/10/25 19:34 Ur Specific [place] 1.028 (1.005-1.030) 04/10/25 19:34 Urine Protein Negative (Negative) 04/10/25 19:34 Urine Glucose (UA) Negative (Normal) 04/10/25 19:34 Urine Ketones Negative (Negative) 04/10/25 19:34 Urine Blood Negative (Negative) 04/10/25 19:34 Urine Nitrate Negative (Negative) 04/10/25 19:34 Urine Bilirubin Negative (Negative) 04/10/25 19:34 Urine Urobilinogen 0.2 mg/dL (Negative) 04/10/25 19:34 Ur Leukocyte Esterase Negative (Negative) 04/10/25 19:34 Urine RBC 0-2 /hpf (0-2) 04/10/25 19:34 Urine WBC 0-5 /hpf (0-5) 04/10/25 19:34 Ur Squamous Epith Cells 0-5 /hpf (0-5) 04/10/25 19:34 Amorphous Sediment Not Reportable 04/10/25 19:34 Urine Bacteria None seen /hpf (NONE) 04/10/25 19:34 Hyaline Casts 0-4 /lpf H 04/10/25 19:34 All radiology interpretation(s) finalized by discharge Discharge Plan Discharge Patient Disposition: Home Clinical Impression: Hypertension, Frequent PVCs Condition: Stable Prescriptions: New amlodipine 10 mg tablet 10 mg PO DAILY Qty: 30 0RF No Action hydrocodone-ibuprofen 7.5-200 mg tablet 1 tab PO Q6H PRN (Reason: Pain) pantoprazole 40 mg tablet,delayed release (DR/EC) 40 mg PO ONCE 30 Days Qty: 30 5RF (DME) Auto-Titrating CPAP Device See Rx Instructions .Route Qty: 1 0RF Rx Instructions: 10-14 cm clonidine HCl 0.2 mg tablet See Rx Instructions .ROUTE .COMPLEX Qty: 180 1RF Dose Instruction: TAKE ONE TABLET BY MOUTH TWO TIMES A DAY Rx Instructions: TAKE ONE TABLET BY MOUTH TWO TIMES A DAY gabapentin 300 mg capsule See Rx Instructions .ROUTE .COMPLEX Qty: 270 1RF Dose Instruction: TAKE 1 CAPSULE BY MOUTH THREE TIMES DAILY Rx Instructions: TAKE 1 CAPSULE BY MOUTH THREE TIMES DAILY venlafaxine 150 mg capsule,extended release 24hr 150 mg PO DAILY 90 Days Qty: 90 3RF levothyroxine 50 mcg tablet See Rx Instructions .ROUTE .COMPLEX Qty: 90 0RF Dose Instruction: TAKE 1 TABLET BY MOUTH DAILY Rx Instructions: TAKE 1 TABLET BY MOUTH DAILY Discharge Orders: Discharge ED (Routine); Ordered 04/10/25 Ordered By: Jcarlos Eller Referrals: Zaida Siddiqui MD [Primary Care Provider, Family Practice] - 1-3 days Patient Instructions: Hypertension (ED), Opioid Safety, Pain Management Activity Restrictions/Additional Instructions: Take your blood pressure twice daily. If the top number stays over 150, take the medication prescribed today. Report numbers to your doctor. Call on Saturday for a follow-up appointment. Return to the emergency department for worsening dizziness, headache, any mental status changes or chest pain, any other concerning symptoms. Print Language: Telugu Coding Level of Care Code ED [employer] Operator for Pari Ann
[2025-04-10 19:49] LABS: Add Urine Microscopic? YES; Bacteria Urine None Seen /hpf; Hyaline Casts Urine 0-4 /lpf; RBC Urine 0-2 /hpf (0-2); Squamous Epithelial Cell Urine 0-5 /hpf (0-5); WBC Urine 0-5 /hpf (0-5)
[2025-04-10 20:04] VITALS: BP 165/77; PULSE 50; RESP 16; O2SAT 96
[2025-04-10] MEDS: amlodipine 10 mg Tablet PO (20:19)
[2025-04-10 20:27] LABS: Thyroid Stimulating Hormone 1.83 uIU/mL (0.27-4.20)
[2025-04-10 20:39] VITALS: BP 157/79; PULSE 51; RESP 18; O2SAT 95
[2025-04-10 21:11] VITALS: BP 155/71; PULSE 49; RESP 16; O2SAT 97
--- NOTE | 2025-04-10 21:11 | ECG_ITS ---
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 Measurements Intervals [place] Rate: 48 P: 39 SC: 215 QRS: 59 QRSD: 90 T: 43 QT: 448 QTc: 401 Interpretive Statements SINUS BRADYCARDIA WITH FIRST DEGREE AV BLOCK Compared to ECG 04/10/2025 19:06:11 First degree AV block now present Ventricular premature complex(es) no longer present Electronically Signed On 04-11-2025 21:46:23 CDT by Alyce Medeiros M.D. [email or web address] [id number]
[2025-04-10 21:36] LABS: Troponin 5 2HR 6.89 ng/L (0-10); Troponin 5 2HR Delta -0.11 ABS# (0-10)
--- NOTE | 2025-04-10 21:42 | XRR_ITS ---
PROCEDURE INFORMATION: Exam: XR Chest Exam date and time: 04/10/2025 9:45 PM Age: 74 years old Clinical indication: Other: Dizziness/hypertension; Prior surgery; Surgery date: 6+ months; Surgery type: Total shoulder; C/O dizziness with hypertension; Additional info: Dizzy TECHNIQUE: Imaging protocol: Radiologic exam of the chest. Views: 1 view. COMPARISON: CR XR shoulder LT min 2V* [id number] 12/13/2021 10:20 AM FINDINGS: Lungs: Unremarkable. No consolidation. Pleural spaces: Unremarkable. No pleural effusion. No pneumothorax. Heart/Mediastinum: Unremarkable. No cardiomegaly. Bones/joints: Partially visualized left shoulder arthroplasty. XR/XR chest 1V portable [id number] IMPRESSION: No acute findings.
[2025-04-10 22:53] VITALS: BP 163/78; PULSE 62; RESP 16; O2SAT 95
== END 2025-04-10 22:54 | disposition home or self-care (01) ==
PROVIDERS: Emergency Provider Emergency Medicine; PCP Family Medicine
DX: I10 Essential (primary) hypertension (principal); I49.3 Ventricular premature depolarization
CPT/HCPCS: 36415; 71045; 80053; 81001; 83605; 83690; 83735; 84443; 84484; 85025; 86140; 93005; 99285; J9999

== ENCOUNTER → 2025-05-10 09:32 | Outpatient (BNVA) | payer MEDICARE, SELFPAY | PROVIDERS: PCP Family Medicine; Referring Provider Family Medicine; Visit Provider Internal Medicine Cardiovascular Disease | DX: I49.3 Ventricular premature depolarization (principal); R00.1 Bradycardia, unspecified; R00.0 Tachycardia, unspecified; I49.1 Atrial premature depolarization | CPT/HCPCS: 93246 ==

== ENCOUNTER → 2025-06-09 08:48 | Outpatient (BNVA) | payer MEDICARE, SELFPAY | PROVIDERS: PCP Family Medicine; Visit Provider Dermatology | DX: L82.1 Other seborrheic keratosis (principal); L81.4 Other melanin hyperpigmentation; D18.01 Hemangioma of skin and subcutaneous tissue; L30.9 Dermatitis, unspecified | CPT/HCPCS: 11104; 99203 ==

== ENCOUNTER → 2025-06-23 09:38 | Outpatient (BNVA) | payer MEDICARE, SELFPAY | PROVIDERS: PCP Family Medicine; Visit Provider Dermatology | DX: L92.0 Granuloma annulare (principal); L82.1 Other seborrheic keratosis; L81.4 Other melanin hyperpigmentation; D18.01 Hemangioma of skin and subcutaneous tissue | CPT/HCPCS: 99214 ==

== ENCOUNTER → 2025-08-04 10:05 | Outpatient (BNVA) | payer MEDICARE, SELFPAY | PROVIDERS: PCP Family Medicine; Visit Provider Dermatology | DX: L92.0 Granuloma annulare (principal); R59.0 Localized enlarged lymph nodes | CPT/HCPCS: 99214 ==

== ENCOUNTER 2025-08-09 10:29 | Outpatient (CLI) | payer MEDICARE, SELFPAY ==
[2025-08-09 12:30] LABS: Hematocrit 39.5 % (36-47); Hemoglobin 12.80 g/dL (11.27-16.99); Mean Corpuscular HGB Conc 32.4 g/dL (30-55); Mean Corpuscular Hemoglobin 31.1 pg (27-33); Mean Corpuscular Volume 95.9 fl (85-98); Nucleated Red Blood Cells % 0 %; Platelet Count 247 10^3/cmm (157-399); Red Blood Count 4.12 10^6/uL (3.85-5.65); White Blood Count 13.84 10^3/uL (3.29-11.43)
[2025-08-09 13:05] LABS: Alanine Aminotransferase 73 U/L (0-33); Albumin Level 4.5 g/dL (3.5-5.2); Alkaline Phosphatase 54 U/L (35-105); Anion Gap 14.5 (5-19); Aspartate Amino Transferase 100 U/L (0-32); Blood Urea Nitrogen 15 mg/dL (8-23); Calcium 9.8 mg/dL (8.5-10.5); Carbon Dioxide 28 mmol/L (22-29); Chloride 99 mmol/L (98-107); Cholesterol 240 mg/dL (0-200); Free T4 Free Thyroxine 1.04 ng/dL (0.82-1.77); Globulin 2.6 g/dL (1.3-4.6); Glucose 112 mg/dL (65-115); HDL Cholesterol 51 mg/dL (60-100); Osmolality Calculated 286 mOsm/kg (285-295); Potassium 4.5 mmol/L (3.5-5.1); Sodium 137 mmol/L (136-145); Thyroid Stimulating Hormone 1.06 uIU/mL (0.27-4.20); Total Protein 7.1 g/dL (6.6-8.7); Triglycerides 105 mg/dL (0-150)
[2025-08-09 13:30] LABS: Slide Review Slide Review Perform
== END 2025-08-09 10:30 | disposition home or self-care (01) ==
LOC: LAB 10:31
PROVIDERS: PCP Family Medicine; Visit Provider Dermatology
DX: I10 Essential (primary) hypertension (principal); L92.0 Granuloma annulare
CPT/HCPCS: 36415; 80053; 80061; 84439; 84443; 85025

== ENCOUNTER 2025-08-17 14:16 | Oncology outpatient (recurring) (ONCR) | payer MEDICARE, SELFPAY ==
[2025-08-19 14:22] LABS: Leukemia Profile (BBPL) See Report
== END 2025-08-27 23:59 | disposition home or self-care (01) ==
LOC: ONCMED 14:16
PROVIDERS: PCP Family Medicine; Visit Provider Internal Medicine Medical Oncology
DX: D72.820 Lymphocytosis (symptomatic) (principal); R21 Rash and other nonspecific skin eruption
CPT/HCPCS: 36415; 88184; 88185; 99205

== ENCOUNTER → 2025-09-01 10:19 | Outpatient (BNVA) | payer MEDICARE, SELFPAY | PROVIDERS: PCP Family Medicine; Visit Provider Dermatology | DX: L82.0 Inflamed seborrheic keratosis (principal) | CPT/HCPCS: 99214 ==

== ENCOUNTER 2025-09-07 14:06 | Oncology outpatient (recurring) (ONCR) | payer MEDICARE, SELFPAY | END 2025-09-26 23:59 | disposition home or self-care (01) | LOC: ONCMED 14:06 | PROVIDERS: PCP Family Medicine; Visit Provider Internal Medicine Medical Oncology | DX: D72.820 Lymphocytosis (symptomatic) (principal); R21 Rash and other nonspecific skin eruption | CPT/HCPCS: 99214 ==

== ENCOUNTER 2025-09-17 13:25 | Outpatient (CLI) | payer MEDICARE, SELFPAY ==
[2025-09-17] MEDS: iohexol 350 mg/mL 500 mL Btl (per mL) IV (14:13)
[2025-09-17] MEDS: iohexol 350 mg/mL 500 mL Btl (per mL) PO (14:14)
--- NOTE | 2025-09-17 14:30 | CTR_ITS ---
PROCEDURE INFORMATION: Exam: CT Chest With Contrast; Diagnostic Exam date and time: 09/17/2025 2:22 PM Age: 74 years old Clinical indication: Condition or disease; Other: Cll; Prior surgery; Surgery date: 6+ months; Surgery type: Tubal, lumbar fusion; High wbc, fatigue, R/O chronic lymphocytic leukemia TECHNIQUE: Imaging protocol: Diagnostic computed tomography of the chest with contrast. Radiation optimization: All CT scans at this facility use at least one of these dose optimization techniques: automated exposure control; mA and/or kV adjustment per patient size (includes targeted exams where dose is matched to clinical indication); or iterative reconstruction. Contrast material: OMNI 350; Contrast volume: 100 ml; Contrast route: INTRAVENOUS (IV); COMPARISON: CR XR chest 1V portable [id number] 04/10/2025 9:45 PM RADIATION DOSE METRICS: Total DLP (mGy-cm): 805.75 FINDINGS: Lungs: Within normal limits. Pleural spaces: No pneumothorax. No pleural effusion. Heart: Prominent heart size with dilated left atrium Lymph nodes: Within normal limits. Vasculature: Nonaneurysmal ascending thoracic aorta with systemic aortic and coronary artery plaque. Bones/joints: Cervical fusion hardware and left shoulder arthroplasty hardware are partially imaged. Spinal spondylosis. Soft tissues: Unremarkable. PROCEDURE INFORMATION: Exam: CT Abdomen And Pelvis With Contrast Exam date and time: 09/17/2025 2:22 PM Age: 74 years old Clinical indication: Condition or disease; Other: Cll; Prior surgery; Surgery date: 6+ months; Surgery type: Tubal, lumbar fusion; High wbc, fatigue, R/O chronic lymphocytic leukemia TECHNIQUE: Imaging protocol: Computed tomography of the abdomen and pelvis with contrast. Radiation optimization: All CT scans at this facility use at least one of these dose optimization techniques: automated exposure control; mA and/or kV adjustment per patient size (includes targeted exams where dose is matched to clinical indication); or iterative reconstruction. Contrast material: OMNI 350; Contrast volume: 100 ml; Contrast route: INTRAVENOUS (IV); COMPARISON: MR lumbar spine wo con* [id number] 05/30/2021 9:49 AM RADIATION DOSE METRICS: Total DLP (mGy-cm): 805.75 FINDINGS: Liver: Within normal limits. Gallbladder and biliary ducts: Within normal limits. Pancreas: Within normal limits. Spleen: Nonenlarged spleen. Adrenal glands: Within normal limits. Kidneys and ureters: Subcentimeter renal hypodensities are seen which are too small to characterize. Stomach and bowel: No bowel obstruction.Colonic diverticulosis without evidence of acute diverticulitis. Appendix: Within normal limits. Intraperitoneal space: Abdominal aorta and iliac arteries are nonaneurysmal with plaque. Vasculature: Within normal limits. Lymph nodes: Within normal limits. Urinary bladder: Unremarkable as visualized. Reproductive: Unremarkable as visualized. Bones/joints: Status post L4-L5 posterior spinal fusion. Spinal spondylosis. Hip degenerative changes. Soft tissues: Unremarkable. CT/CT chest abdpel w/*[id number] IMPRESSION: No airspace disease. IMPRESSION: No evidence of bowel obstruction, appendicitis, or diverticulitis. COMMENTS: Consistent with the [employer]'s Incidental Findings Committee white paper (J Am [employer]iol 2018): Any incidental renal lesion less than 1 cm or classified as too small to characterize, or any incidental cystic renal lesion characterized as simple-appearing, is likely benign. No follow-up imaging is recommended for these lesions per consensus recommendations based on imaging criteria.
== END 2025-09-17 13:26 | disposition home or self-care (01) ==
LOC: RAD 13:26
PROVIDERS: PCP Family Medicine; Visit Provider Internal Medicine Medical Oncology
DX: C91.10 Chronic lymphocytic leukemia of B-cell type not having achieved remission (principal); I51.7 Cardiomegaly; I70.0 Atherosclerosis of aorta; I77.810 Thoracic aortic ectasia; I25.10 Atherosclerotic heart disease of native coronary artery without angina pectoris; Z98.1 Arthrodesis status; Z96.612 Presence of left artificial shoulder joint; K57.30 Diverticulosis of large intestine without perforation or abscess without bleeding; I70.8 Atherosclerosis of other arteries; M43.26 Fusion of spine, lumbar region; M47.816 Spondylosis without myelopathy or radiculopathy, lumbar region; M16.0 Bilateral primary osteoarthritis of hip; N28.89 Other specified disorders of kidney and ureter
CPT/HCPCS: 71260; 74177

== ENCOUNTER → 2025-10-12 10:42 | Outpatient (BNVA) | payer MEDICARE, SELFPAY | PROVIDERS: PCP Family Medicine; Visit Provider Dermatology | DX: L92.0 Granuloma annulare (principal) | CPT/HCPCS: 99214 ==

== ENCOUNTER 2025-10-18 10:09 | Oncology outpatient (recurring) (ONCR) | payer MEDICARE, SELFPAY | END 2025-10-27 23:59 | disposition home or self-care (01) | LOC: ONCMED 10:09 | PROVIDERS: PCP Family Medicine; Visit Provider Internal Medicine Medical Oncology | DX: C91.10 Chronic lymphocytic leukemia of B-cell type not having achieved remission (principal); R21 Rash and other nonspecific skin eruption; M89.8X9 Other specified disorders of bone, unspecified site | CPT/HCPCS: 99214 ==